=== PATIENT | male | born 1960 | race African-American/Black ===

== ENCOUNTER 2018-01-08 09:29 | Inpatient (IN) ==
[2018-01-08] MEDS ORDERED: methylPREDNISolone SOD SUC 125 MG/2 ML VIAL IV STA (10:02)
[2018-01-08] MEDS ORDERED: cefTRIAXone 250 MG VIAL IV STA (10:03)
[2018-01-08] MEDS ORDERED: AZITHROMYCIN INJ 500 MG in SODIUM CHLORIDE 0.9% 250 ML IV STA (10:06)
[2018-01-08] MEDS ORDERED: ALBUTEROL/IPRATROPIUM 3 ML NEB RESP TX STA (10:08)
[2018-01-08] MEDS ORDERED: AZITHROMYCIN 500 MG VIAL IV ONE (10:17)
[2018-01-08] MEDS ORDERED: cefTRIAXone 1,000 MG VIAL ONE (10:17)
[2018-01-08 10:28] LABS: Basophils % 0.3 % (0.0-0.8); Eosinophils # 0.4 10*3/uL (0.0-0.87); Eosinophils % 5.8 % (0.00-10.9); Hematocrit 36.7 VOL% (42.0-52.0); Hemoglobin 11.8 GM/DL (14.0-18.0); Immature Granulocytes % 0.5 %; Immature Granulocytes Absolute 0.04 #; Lymphocytes # 1.3 10*3/uL (1.4-4.0); Lymphocytes % 17.6 % (21.2-54.2); Mean Corpuscular HGB Conc 32.2 GM/DL (32-36); Mean Corpuscular Hemoglobin 30 PG (27-34); Mean Corpuscular Volume 93.9 FL (87-102); Monocytes # 1.1 10*3/uL (0.11-0.8); Monocytes % 14.4 % (1.7-12.7); Neutrophils # 4.7 10*3/uL (1.4-7.4); Neutrophils % 61.4 % (38.7-73.9); Platelet Count 239 T/CUMM (130-400); Red Blood Count 3.91 MC/CUMM (3.8-5.5); Red Cell Distribution Width 12.7 % (9.3-17.3); White Blood Count 7.6 T/CUMM (4-12)
[2018-01-08 10:50] LABS: Alanine Aminotransferase 27 U/L (16-61); Alkaline Phosphatase 110 U/L (45-117); Aspartate Amino Transferase 37 U/L (0-37); Bilirubin,Total < 0.39 MG/DL (0.2-1.0); Blood Urea Nitrogen 7 MG/DL (7-18); Calcium 8.5 MG/DL (8.5-10.1); Glucose 111 MG/DL (74-106); Osmolality,Calculated 273.7 MOS/KG (273-304); Sodium 138 MMOL/L (136-145); Total Protein 6.9 G/DL (6.4-8.3)
[2018-01-08 11:08] LABS: ABG Base Excess 9.7 MMOL/L (-2.5-2.5); ABG HCO3 40.7 MMOL/L (20-26); ABG PH 7.226 (7.35-7.45); ABG PO2 133.6 MM HG (80-95); ABG TCO2 43.8 MMOL/L (23-27)
[2018-01-08 11:09] LABS: ABG PCO2 100.3 MM HG (35-48)
[2018-01-08] MEDS ORDERED: ETOMIDATE 20 MG/10 ML VIAL IV ONE (11:23)
[2018-01-08] MEDS ORDERED: ROCURONIUM 100 MG/10 ML VIAL IV ONE (11:23)
[2018-01-08] MEDS ORDERED: PROPOFOL 1,000 MG/100 ML BOTTLE IV ONE (11:46)
[2018-01-08] MEDS ORDERED: ACETAMINOPHEN 325 MG TABLET PO PRN (11:48)
[2018-01-08] MEDS ORDERED: ALBUTEROL 2.5 MG/3 ML NEB RESP TX PRN (11:48)
[2018-01-08] MEDS: PROPOFOL 1,000 MG/100 ML BOTTLE IV SCH ×3 (11:52→21:00)
[2018-01-08] MEDS ORDERED: FUROSEMIDE 40 MG/4 ML VIAL IV ONE (11:57)
[2018-01-08] MEDS ORDERED: cefTRIAXone 1,000 MG in SYRINGE 1 EACH IV SCH (12:00)
[2018-01-08] MEDS ORDERED: AZITHROMYCIN INJ 500 MG in SODIUM CHLORIDE 0.9% 250 ML IV SCH (12:00)
[2018-01-08] MEDS ORDERED: hydrALAZINE 20 MG/1 ML VIAL IV PRN (12:28)
[2018-01-08 13:48] LABS: ABG HCO3 33.8 MMOL/L (20-26); ABG Oxygen Saturation 99.9 % (95-100); ABG PCO2 57.3 MM HG (35-48); ABG PH 7.416 (7.35-7.45); ABG TCO2 32.5 MMOL/L (23-27)
[2018-01-08 14:06] LABS: Troponin I Only < 0.015 NG/ML (0.00-0.045)
[2018-01-08] MEDS: fentaNYL INJ 1,250 MCG in SODIUM CHLORIDE 0.9% 225 ML IV PRN (15:01)
[2018-01-08] MEDS: FAMOTIDINE 20 MG/2 ML VIAL IV SCH (15:17)
[2018-01-08] MEDS: methylPREDNISolone SOD SUC 125 MG/2 ML VIAL IV SCH ×2 (15:21→20:54)
[2018-01-08] MEDS: ENOXAPARIN 40 MG/0.4 ML SYRINGE SUBCUT SCH (15:22)
[2018-01-08] MEDS: LORazepam 2 MG/1 ML VIAL IV PRN (15:45)
[2018-01-08] MEDS: ALBUTEROL/IPRATROPIUM 3 ML NEB RESP TX SCH (19:35)
[2018-01-08 20:26] LABS: Troponin I Only < 0.015 NG/ML (0.00-0.045)
[2018-01-09] MEDS: FAMOTIDINE 20 MG/2 ML VIAL IV SCH ×2 (00:32→11:12)
[2018-01-09] MEDS: ALBUTEROL/IPRATROPIUM 3 ML NEB RESP TX SCH ×4 (00:55→19:13)
[2018-01-09 03:28] LABS: ABG Base Excess 4.2 MMOL/L (-2.5-2.5); ABG HCO3 28.2 MMOL/L (20-26); ABG PCO2 48.8 MM HG (35-48); ABG PH 7.397 (7.35-7.45); ABG TCO2 26.5 MMOL/L (23-27)
[2018-01-09] MEDS: methylPREDNISolone SOD SUC 125 MG/2 ML VIAL IV SCH ×3 (03:34→20:31)
[2018-01-09] MEDS: fentaNYL INJ 1,250 MCG in SODIUM CHLORIDE 0.9% 225 ML IV PRN ×2 (03:39→18:10)
[2018-01-09 03:53] LABS: Basophils % 0.1 % (0.0-0.8); Hematocrit 38.7 VOL% (42.0-52.0); Hemoglobin 12.1 GM/DL (14.0-18.0); Immature Granulocytes % 0.7 %; Immature Granulocytes Absolute 0.05 #; Lymphocytes # 0.7 10*3/uL (1.4-4.0); Lymphocytes % 9.7 % (21.2-54.2); Mean Corpuscular HGB Conc 31.3 GM/DL (32-36); Mean Corpuscular Hemoglobin 29 PG (27-34); Mean Corpuscular Volume 93.3 FL (87-102); Mean Platelet Volume 9.3 FL (9.6-12.0); Monocytes # 0.2 10*3/uL (0.11-0.8); Monocytes % 2.5 % (1.7-12.7); Neutrophils # 6.3 10*3/uL (1.4-7.4); Platelet Count 281 T/CUMM (130-400); Red Blood Count 4.15 MC/CUMM (3.8-5.5); Red Cell Distribution Width 12.7 % (9.3-17.3); White Blood Count 7.2 T/CUMM (4-12)
[2018-01-09 04:36] LABS: Albumin 2.9 G/DL (3.4-5.0); Bilirubin,Total 0.6 MG/DL (0.2-1.0); Calcium 8.9 MG/DL (8.5-10.1); Potassium 3.7 MMOL/L (3.5-5.1); Total Protein 6.9 G/DL (6.4-8.3)
[2018-01-09] MEDS: PROPOFOL 1,000 MG/100 ML BOTTLE IV SCH ×3 (05:57→22:24)
[2018-01-09] MEDS: AZITHROMYCIN INJ 500 MG in SODIUM CHLORIDE 0.9% 250 ML IV SCH (08:12)
[2018-01-09] MEDS: cefTRIAXone 1,000 MG in SYRINGE 1 EACH IV SCH (08:13)
[2018-01-09] MEDS: ENOXAPARIN 40 MG/0.4 ML SYRINGE SUBCUT SCH (11:12)
[2018-01-09 12:04] LABS: Apearance,Urine CLEAR (Clear); Bilirubin,Urine Negative (Negative); Blood, Urine Negative (Negative); Glucose,Urine (UA) Negative (Negative); Ketones,Urine Negative (Negative); Mucus,Urine Occasional /LPF (Occasional); Nitrite,Urine Negative (Negative); Protein,Urine Negative; RBC,Urine 3 /HPF (0-4); Squamous Epithelial Cell,Urine Occasional /HPF (0-10); Urine Color Yellow (Yellow); Urine Specific Gravity 1.017 (1.001-1.035); Urine Urobilinogen < 2.0 EU/DL (0.2-1.0); WBC,Urine 2 /HPF (0-6)
[2018-01-09] MEDS ORDERED: GLUCAGON 1 MG VIAL IM PRN (12:51)
[2018-01-09] MEDS ORDERED: DEXTROSE 50% 25 GM/50 ML VIAL IV PRN (12:51)
[2018-01-09] MEDS: INSULIN REGULAR 100 UNIT/ML SUBCUT SCH ×2 (18:10→23:40)
[2018-01-10] MEDS: ALBUTEROL/IPRATROPIUM 3 ML NEB RESP TX SCH ×4 (00:13→19:00)
[2018-01-10] MEDS: FAMOTIDINE 20 MG/2 ML VIAL IV SCH ×2 (00:42→12:09)
[2018-01-10] MEDS: fentaNYL INJ 1,250 MCG in SODIUM CHLORIDE 0.9% 225 ML IV PRN ×4 (00:43→22:34)
[2018-01-10] MEDS: methylPREDNISolone SOD SUC 125 MG/2 ML VIAL IV SCH ×3 (03:46→20:21)
[2018-01-10 04:05] LABS: Basophils % 0.1 % (0.0-0.8); Hematocrit 37.7 VOL% (42.0-52.0); Hemoglobin 12.2 GM/DL (14.0-18.0); Immature Granulocytes % 0.8 %; Lymphocytes # 0.7 10*3/uL (1.4-4.0); Lymphocytes % 5.2 % (21.2-54.2); Mean Corpuscular HGB Conc 32.4 GM/DL (32-36); Mean Corpuscular Hemoglobin 30 PG (27-34); Mean Corpuscular Volume 91.3 FL (87-102); Mean Platelet Volume 10.5 FL (9.6-12.0); Monocytes # 0.6 10*3/uL (0.11-0.8); Monocytes % 4.5 % (1.7-12.7); Neutrophils # 11.3 10*3/uL (1.4-7.4); Neutrophils % 89.4 % (38.7-73.9); Platelet Count 256 T/CUMM (130-400); Red Blood Count 4.13 MC/CUMM (3.8-5.5); Red Cell Distribution Width 13.2 % (9.3-17.3); White Blood Count 12.6 T/CUMM (4-12)
[2018-01-10 04:19] LABS: Prealbumin 14.6 MG/DL (20-40)
[2018-01-10 04:22] LABS: Calcium 8.3 MG/DL (8.5-10.1); Osmolality,Calculated 282.5 MOS/KG (273-304); Potassium 3.7 MMOL/L (3.5-5.1)
[2018-01-10 04:25] LABS: Allen Test Positive; Pt O2 Delivery Device Ventilator
[2018-01-10 04:26] LABS: ABG Base Excess 0.8 MMOL/L (-2.5-2.5); ABG HCO3 25.2 MMOL/L (20-26); ABG Oxygen Saturation 98.1 % (95-100); ABG PCO2 46.5 MM HG (35-48); ABG PH 7.367 (7.35-7.45); ABG TCO2 23.5 MMOL/L (23-27)
[2018-01-10] MEDS: PROPOFOL 1,000 MG/100 ML BOTTLE IV SCH ×3 (04:43→22:34)
[2018-01-10] MEDS: INSULIN REGULAR 100 UNIT/ML SUBCUT SCH ×3 (06:15→20:02)
[2018-01-10] MEDS: cefTRIAXone 1,000 MG in SYRINGE 1 EACH IV SCH (09:05)
[2018-01-10] MEDS: AZITHROMYCIN INJ 500 MG in SODIUM CHLORIDE 0.9% 250 ML IV SCH (09:05)
[2018-01-10] MEDS: LEVOFLOXACIN INJ 500 MG in PREMIX 1 EACH IV SCH (12:06)
[2018-01-10] MEDS: ENOXAPARIN 40 MG/0.4 ML SYRINGE SUBCUT SCH (12:06)
[2018-01-10] MEDS: LORazepam 2 MG/1 ML VIAL IV PRN (14:18)
[2018-01-11] MEDS: INSULIN REGULAR 100 UNIT/ML SUBCUT SCH ×5 (00:01→23:38)
[2018-01-11] MEDS: ALBUTEROL/IPRATROPIUM 3 ML NEB RESP TX SCH ×4 (00:20→19:14)
[2018-01-11] MEDS: methylPREDNISolone SOD SUC 125 MG/2 ML VIAL IV SCH ×3 (04:03→21:20)
[2018-01-11 04:05] LABS: ABG Base Excess 0.5 MMOL/L (-2.5-2.5); ABG HCO3 26.6 MMOL/L (20-26); ABG Oxygen Saturation 98.2 % (95-100); ABG PCO2 48.4 MM HG (35-48); ABG PH 7.358 (7.35-7.45); ABG PO2 123.5 MM HG (80-95); ABG TCO2 28.1 MMOL/L (23-27); Allen Test Positive; Pt O2 Delivery Device Ventilator
[2018-01-11 04:22] LABS: Calcium 7.8 MG/DL (8.5-10.1); Osmolality,Calculated 287.4 MOS/KG (273-304); Potassium 3.8 MMOL/L (3.5-5.1)
[2018-01-11] MEDS: fentaNYL INJ 1,250 MCG in SODIUM CHLORIDE 0.9% 225 ML IV PRN ×3 (05:48→23:39)
[2018-01-11] MEDS: LORazepam 2 MG/1 ML VIAL IV PRN ×2 (06:00→22:40)
[2018-01-11] MEDS: PROPOFOL 1,000 MG/100 ML BOTTLE IV SCH ×2 (07:57→18:05)
[2018-01-11] MEDS: cefTRIAXone 1,000 MG in SYRINGE 1 EACH IV SCH (09:44)
[2018-01-11] MEDS: CEFEPIME 2,000 MG in SYRINGE 1 EACH IV SCH ×2 (10:10→19:26)
[2018-01-11] MEDS: ENOXAPARIN 40 MG/0.4 ML SYRINGE SUBCUT SCH (12:33)
[2018-01-11] MEDS: LEVOFLOXACIN INJ 500 MG in PREMIX 1 EACH IV SCH (12:34)
[2018-01-11] MEDS: FAMOTIDINE 20 MG/2 ML VIAL IV SCH ×3 (12:36→23:46)
[2018-01-12] MEDS: ALBUTEROL/IPRATROPIUM 3 ML NEB RESP TX SCH ×4 (00:38→19:19)
[2018-01-12 03:17] LABS: ABG Base Excess 1.7 MMOL/L (-2.5-2.5); ABG HCO3 25.9 MMOL/L (20-26); ABG Oxygen Saturation 95.6 % (95-100); ABG PCO2 49.8 MM HG (35-48); ABG PH 7.359 (7.35-7.45); ABG PO2 81.2 MM HG (80-95); ABG TCO2 24.9 MMOL/L (23-27)
[2018-01-12] MEDS: methylPREDNISolone SOD SUC 125 MG/2 ML VIAL IV SCH ×3 (03:38→20:15)
[2018-01-12] MEDS: CEFEPIME 2,000 MG in SYRINGE 1 EACH IV SCH ×3 (03:38→18:24)
[2018-01-12] MEDS: PROPOFOL 1,000 MG/100 ML BOTTLE IV SCH ×3 (04:06→22:21)
[2018-01-12] MEDS: fentaNYL INJ 1,250 MCG in SODIUM CHLORIDE 0.9% 225 ML IV PRN ×3 (05:27→20:01)
[2018-01-12 05:53] LABS: Basophils % 0.1 % (0.0-0.8); Hematocrit 37.7 VOL% (42.0-52.0); Immature Granulocytes % 0.7 %; Immature Granulocytes Absolute 0.13 #; Lymphocytes # 1.2 10*3/uL (1.4-4.0); Lymphocytes % 6.9 % (21.2-54.2); Mean Corpuscular HGB Conc 31.8 GM/DL (32-36); Mean Corpuscular Hemoglobin 29 PG (27-34); Mean Corpuscular Volume 91.1 FL (87-102); Mean Platelet Volume 9.8 FL (9.6-12.0); Monocytes # 2.6 10*3/uL (0.11-0.8); Monocytes % 14.8 % (1.7-12.7); Neutrophils # 13.5 10*3/uL (1.4-7.4); Neutrophils % 77.5 % (38.7-73.9); Platelet Count 264 T/CUMM (130-400); Red Blood Count 4.14 MC/CUMM (3.8-5.5); Red Cell Distribution Width 13.2 % (9.3-17.3); White Blood Count 17.4 T/CUMM (4-12)
[2018-01-12] MEDS: INSULIN REGULAR 100 UNIT/ML SUBCUT SCH ×4 (06:05→23:35)
[2018-01-12 06:15] LABS: Calcium 8.1 MG/DL (8.5-10.1); Osmolality,Calculated 287.3 MOS/KG (273-304); Potassium 3.9 MMOL/L (3.5-5.1)
[2018-01-12] MEDS: ENOXAPARIN 40 MG/0.4 ML SYRINGE SUBCUT SCH (12:16)
[2018-01-12] MEDS: LEVOFLOXACIN INJ 500 MG in PREMIX 1 EACH IV SCH (12:17)
[2018-01-12] MEDS: FAMOTIDINE 20 MG/2 ML VIAL IV SCH (12:21)
[2018-01-12 19:05] VITALS: BP 126/67
[2018-01-12] MEDS ORDERED: ETOMIDATE 20 MG/10 ML VIAL IV ONE ×2 (20:46→20:50)
[2018-01-12] MEDS ORDERED: SUCCINYLCHOLINE 200 MG/10 ML VIAL ONE (20:47)
[2018-01-12] MEDS ORDERED: SUCCINYLCHOLINE 200 MG/10 ML VIAL IV ONE (20:50)
[2018-01-12] MEDS: fentaNYL INJ 2,500 MCG in SODIUM CHLORIDE 0.9% 450 ML IV PRN (23:10)
[2018-01-13] MEDS: ALBUTEROL/IPRATROPIUM 3 ML NEB RESP TX SCH ×3 (00:30→12:39)
[2018-01-13] MEDS: FAMOTIDINE 20 MG/2 ML VIAL IV SCH ×2 (00:49→12:01)
[2018-01-13] MEDS: CEFEPIME 2,000 MG in SYRINGE 1 EACH IV SCH ×2 (01:01→09:40)
[2018-01-13 03:08] LABS: ABG Base Excess 2.7 MMOL/L (-2.5-2.5); ABG HCO3 28.7 MMOL/L (20-26); ABG Oxygen Saturation 95.6 % (95-100); ABG PCO2 49.9 MM HG (35-48); ABG PH 7.377 (7.35-7.45); ABG PO2 84.4 MM HG (80-95); ABG TCO2 30.2 MMOL/L (23-27); Pt O2 Delivery Device Ventilator
[2018-01-13] MEDS: PROPOFOL 1,000 MG/100 ML BOTTLE IV SCH ×3 (03:31→14:00)
[2018-01-13] MEDS: methylPREDNISolone SOD SUC 125 MG/2 ML VIAL IV SCH ×2 (04:06→12:02)
[2018-01-13 05:13] LABS: Basophils # 0.1 10*3/uL (0.0-0.2); Basophils % 0.3 % (0.0-0.8); Hematocrit 37.2 VOL% (42.0-52.0); Hemoglobin 11.6 GM/DL (14.0-18.0); Immature Granulocytes % 1.8 %; Immature Granulocytes Absolute 0.37 #; Lymphocytes # 1.8 10*3/uL (1.4-4.0); Lymphocytes % 8.7 % (21.2-54.2); Mean Corpuscular HGB Conc 31.2 GM/DL (32-36); Mean Corpuscular Hemoglobin 29 PG (27-34); Mean Corpuscular Volume 94.4 FL (87-102); Monocytes # 3.4 10*3/uL (0.11-0.8); Monocytes % 16.1 % (1.7-12.7); NRBC # 0.03 10*3/uL; Neutrophils # 15.2 10*3/uL (1.4-7.4); Neutrophils % 73.1 % (38.7-73.9); Platelet Count 226 T/CUMM (130-400); Red Blood Count 3.94 MC/CUMM (3.8-5.5); Red Cell Distribution Width 12.9 % (9.3-17.3); White Blood Count 20.8 T/CUMM (4-12)
[2018-01-13 05:19] LABS: Calcium 8.2 MG/DL (8.5-10.1)
[2018-01-13 05:20] LABS: Osmolality,Calculated 288.3 MOS/KG (273-304); Potassium 4.5 MMOL/L (3.5-5.1)
[2018-01-13] MEDS: INSULIN REGULAR 100 UNIT/ML SUBCUT SCH ×2 (05:25→11:56)
[2018-01-13 05:36] LABS: Lymphocytes 22 % (20-55); Macrocytosis 1+; Platelet Estimate Normal; Segmented Neutrophils 73 % (50-85); Total Cells Counted 100
[2018-01-13] MEDS: fentaNYL INJ 2,500 MCG in SODIUM CHLORIDE 0.9% 450 ML IV PRN ×2 (05:48→13:07)
[2018-01-13] MEDS ORDERED: FUROSEMIDE 20 MG/2 ML VIAL IV ONE (08:32)
[2018-01-13] MEDS: ENOXAPARIN 40 MG/0.4 ML SYRINGE SUBCUT SCH (12:04)
[2018-01-13] MEDS: LEVOFLOXACIN INJ 500 MG in PREMIX 1 EACH IV SCH (12:08)
== END 2018-01-13 15:36 | DRG 207 ==
LOC: N.ED 09:29 → SUATTDRO 11:48 → N.EDINP 11:48 → N.ICU 12:36
PROVIDERS: ADMIT Family Medicine; ATTEND Internal Medicine